=== PATIENT | female | born 1985 | race African-American/Black ===

== ENCOUNTER 2021-09-06 00:34 | Emergency (ER) | payer OTHER, SELFPAY ==
[2021-09-06 00:35] VITALS: BP 135/84; PULSE 87; RESP 14; TEMP 36.8; O2SAT 98; BMI 101.2
--- NOTE | 2021-09-06 00:59 | [facility].EDGENADL ---
ED Disposition Clinical Impression: Peripheral edema Clinical Impression: (Ruled Out): Edema Disposition: Home, Self-Care Condition on Discharge: Good Additional Instructions: Follow-up with primary care. Avoid foods high in salt, also recommend wearing compression socks, look for socks with 30 to 40 mmHg of compression. Keep your feet elevated and above the level of your heart when you can. Continue to take your medications as prescribed. Referrals: Provider,Referral, [Primary Care Provider] - - Critical Care Critical Care Time: No Attestation: On 09/06/21, the high probability of a clinically significant, sudden or life threatening deterioration of the following system(s) required my full and direct attention, intervention and personal management. The time I documented below is in addition to time spent performing reported procedures but includes the following listed in this critical care notation. Medical Decision Making - Medical Records Medical records reviewed: Yes: I reviewed the patient's medical records. - Justino Inquiry Pt receiving controlled substance: No Vital Signs: 09/06/21 00:35 Temperature 98.3 F Temperature Source Oral Pulse Rate [Left] 87 Respiratory Rate 14 Blood Pressure [Right Arm] 135/84 Blood Pressure Mean [Right Arm] 101 02 Sat by Pulse Oximetry 98 Oxygen Delivery Method Room Air - Lab Data Lab results reviewed: Yes: I reviewed the patient's lab results. Lab Results 09/06/21 00:45: Urine Color Yellow, Urine Appearance Clear, Urine pH 7.0, Ur Specific Kress 1.025, Urine Protein Trace, Urine Glucose (UA) Negative, Urine Ketones Negative, Urine Blood Negative, Urine Nitrate Negative, Urine Bilirubin Negative, Urine Urobilinogen 0.2, Ur Leukocyte Esterase Negative, Urine WBC 3-5, Urine Bacteria 1+ 09/06/21 01:14: Troponin I < 0.01 Orders (Tests/Meds): ORDERS Category Date Time Status Troponin I Q3H Lab 09/06/21 04:15 Ordered Troponin I Q3H Lab 09/06/21 07:15 Ordered ECG Request by /Nse Stat Y 09/06/21 01:09 Ordered Medical Decision Narrative: Patient is a 36-year-old female presenting to the emergency department chief complaint of lower extremity edema, and strong-smelling urine. Differential diagnosis in this patient includes urinary tract infection, venous stasis, pyelonephritis, among others. Patient is well-appearing on examination, has no significant tenderness, edema is trace that has been present for 5 days. EKG, troponin, and UA to further assess patient. Patient UA nonconcerning for an acute urinary tract infection. Patient does not have an elevation in troponin, given that she has been having this same chest tightness off and on, lower suspicion for cardiac etiology, patient ECG showed normal sinus rhythm. Given this we will discharge patient. General Adult HPI - General Stated complaint: difficulty peeing,hands and feet swelling Time Seen by Provider: 09/06/21 00:50 Source of Information: Patient Limitations: No Limitations - History of Present Illness HPI narrative: Patient is a 36-year-old female presenting to the emergency department with multiple complaints. She states that over the past few days she has noticed some swelling of her feet, she is concerned that she has a Raynaud's syndrome as her mother does, her mother has also had multiple amputations of her foot. Patient states that off and on she has felt some chest tightness, states that she has been sad and anxious one of her friends overdosed and . She is currently taking Suboxone and has been on it for 2 weeks however she is considering getting off of it. She is denying any shortness of air, nausea, vomiting or abdominal pain, states that she has some left-sided lower back pain. She has no dysuria, is currently on her period but states that she her urine has a strong smell she also is taking lisinopril with HCTZ feels like she is not urinating quite as much as she usually w
[2021-09-06 01:15] LABS: Microscopic, Urine URINE MICROSCOPIC (MICROSCOPIC)
[2021-09-06 01:17] LABS: Appearance,Urine CLEAR (Clear); Bilirubin,Urine Negative (Negative); Blood, Urine Negative (Negative); Color,Urine YELLOW (Yellow); Glucose,Urine (UA) Negative (Negative); Ketones,Urine Negative (Negative); Leukocyte Esterase,Urine Negative (Negative); Nitrate,Urine Negative (Negative); Protein,Urine TRACE (Negative); Specific Gravity, Urine 1.025 (1.005-1.030); Urobilinogen,Urine 0.2 EU/dl (0.2)
--- NOTE | 2021-09-06 01:23 | ECG_ITS ---
APPROVED REPORT Exam: Resting ECG HR:68 bpm ECG Measurements Heart Rate 68 AXES SC 184 P 22 QRSd 92 QRS 44 QT 392 T 18 QTc 416 Conclusion Normal sinus rhythm Cannot rule out Anterior infarct, age undetermined Abnormal ECG Electronically signed by : Kyle Shin MD 09/06/2021 22:09:31
[2021-09-06 01:36] LABS: Bacteria,Urine 1+ /lpf
[2021-09-06 01:52] LABS: Troponin I < 0.01 ng/ml (0.00-0.034)
[2021-09-06 02:11] VITALS: BP 139/84; PULSE 67; RESP 16; TEMP 36.6; O2SAT 100
== END 2021-09-06 02:13 | disposition home or self-care (01) ==
PROVIDERS: Emergency Provider Emergency Medicine
DX: R60.9 Edema, unspecified (principal); F17.210 Nicotine dependence, cigarettes, uncomplicated
CPT/HCPCS: 81001; 84484; 93005; 99283